=== PATIENT | female | born 1985 | race Caucasian/White ===

== ENCOUNTER 2016-11-06 20:26 | Inpatient (IN) | payer OTHER ==
[~2016-11-06] VITALS: Ht 165.1 cm; Wt 77.9 kg
[2016-11-06] MEDS ORDERED: FEXO1TAB58 PO (20:49)
[2016-11-06] MEDS ORDERED: GABA-112 PO (20:49)
[2016-11-06] MEDS ORDERED: DICY10CA55 PO (20:49)
[2016-11-06] MEDS ORDERED: SUMA100T16 PO (20:50)
[2016-11-06] MEDS ORDERED: LORA-741 PO (20:50)
[2016-11-06 21:09] LABS: BASO % 0.4 %; BASO ABS # 0.04 K/uL (0-0.2); COMPLETE YES; EOS % 3.9 %; HEMATOCRIT 40.4 % (37-47); IG% 0.2 %; LYMPH % 36.4 %; LYMPH ABS # 3.71 K/uL (1.2-3.4); MEAN CELL VOLUME 88.4 fL (80-100); MEAN CORPUSCULAR HEMOGLOBIN 31.9 pg (25-34); MEAN CORPUSCULAR HGB CONC 36.1 g/dl (32-36); MEAN PLATELET VOLUME 10.3 fL (7.4-10.4); MONO % 7.4 %; NEUT % 51.7 %; PLATELET COUNT 272 K/uL (130-400); RED BLOOD COUNT 4.57 M/uL (4.2-5.4); WHITE BLOOD COUNT 10.18 K/uL (4.8-10.8)
[2016-11-06 21:15] LABS: URINE APPEARANCE CLEAR (CLEAR); URINE BILIRUBIN NEG (NEG); URINE COLOR DK YELLOW; URINE EPITHELIAL CELL AUTO >30 /lpf (0-5); URINE NITRITE NEG (NEG); URINE SPECIFIC GRAVITY 1.039 (1.000-1.030); UROBILINOGEN NEG (NEG)
[2016-11-06 21:16] LABS: MANUAL MICROSCOPIC REQUIRED? NO; REVIEW REQ? YES
[2016-11-06 21:17] LABS: BUN/CREATININE RATIO 23.2 (10-20); CALCIUM 9.6 mg/dl (8.5-10.1); CREATININE 0.85 mg/dl (0.60-1.20); POTASSIUM 3.9 mmol/L (3.5-5.1)
[2016-11-06 21:20] LABS: ALB/GLOB RATIO 1.5 (0.9-2)
[2016-11-06] MEDS ORDERED: ONDANSETRON INJ 2 MG/ML 2 ML VIAL IV STA (21:24)
[2016-11-06] MEDS ORDERED: HYDROmorphone INJ 0.5 MG/0.5 ML SYR IV STA (21:24)
[2016-11-06 21:26] LABS: URINE MUCUS PRESENT (NONE PRSENT)
[2016-11-06 21:27] LABS: ZZUR CULT IF INDIC CLEAN CATCH YES
[2016-11-06] MEDS ORDERED: SODIUM CHLORIDE 0.9% 1000ML 1,000 ML IV STA (21:27)
--- NOTE | 2016-11-06 22:13 | DIAGNOSTIC IMAGING REPORT ---
ABDOMINAL ULTRASOUND, RIGHT UPPER QUADRANT HISTORY: Right upper quadrant abdominal pain. COMPARISON: None. FINDINGS: This study is compromised by suboptimal penetration. Liver morphology is normal. No biliary ductal dilatation is identified. The common bile duct measures 4 mm in caliber. The gallbladder is filled with gallstones. There may be mild gallbladder wall thickening. No pericholecystic fluid was present. A sonographic Damon sign was elicited. The wall thickness is difficult to assess on this exam as the gallbladder is filled with gallstones. The pancreas is obscured by overlying bowel gas. No right hydronephrosis is present. A 1.6 cm right renal lesion is suggestive of a cyst. IMPRESSION: 1. Cholelithiasis with possible mild gallbladder wall thickening and sonographic Damon sign. A hepatobiliary scan could be obtained to evaluate for acute cholecystitis. 2. No biliary ductal dilatation. 3. Largely obscured pancreas. Electronically signed by: Ata Weeks M.D. 11/06/2016 10:11 PM Dictated Date/Time: 11/06/2016 10:08 PM
[2016-11-06] MEDS ORDERED: LORAZEPAM INJ 0.5 MG in SYRINGE 0.25 ML IV PRN (23:45)
[2016-11-06] MEDS ORDERED: ONDANSETRON INJ 2 MG/ML 2 ML VIAL IV PRN (23:45)
[2016-11-06] MEDS ORDERED: PROMETHAZINE HCL INJ 25 MG in SODIUM CHLORIDE 0.9% 50ML 50 ML IV PRN (23:45)
[2016-11-06] MEDS ORDERED: HYDROmorphone INJ 1 MG/ML SYR IV PRN (23:45)
[2016-11-06] MEDS ORDERED: HYDROmorphone INJ 0.5 MG/0.5 ML SYR IV PRN (23:45)
--- NOTE | 2016-11-06 23:58 | History and Physical ---
History & Physical Date & Time of Service: Nov 06, 2016 at 23:53 Chief Complaint: Upper Abdomen Pain In Back And Right Sholder Primary Care Physician: Millie Longoria PA-C History of Present Illness Source: patient, spouse 31 yo female with RUQ pain, nausea 1-2 weeks now worsening u/s- gallstones, positive Damon's sign Past Medical/Surgical History Medical Problems: (1) IBS (irritable bowel syndrome) Status: Resolved Family History Gallbladder disease Social History Smoking Status: Current Every Day Smoker Smokeless Tobacco Use: No Marital Status: Allergies Coded Allergies: Cefuroxime (Unverified Allergy, Unknown, RASH, 11/06/16) Clarithromycin (Unverified Allergy, Unknown, PASS OUT, 11/06/16) Iodinated Diagnostic Agents (Unverified Allergy, Unknown, ANAPHYLAXIS, ) Penicillins (Unverified Allergy, Unknown, RASH, 11/06/16) Sulfa Antibiotics (Unverified Allergy, Unknown, RASH, 11/06/16) Home Medications Scheduled Dicyclomine Hcl (Bentyl), 10 MG PO QID Fexofenadine-Pseudoephedrine (Skye-D 24 Hour Allergy), 1 TAB PO DAILY Gabapentin (Neurontin), 100 MG PO QID Scheduled PRN Lorazepam (Ativan), 0.5 MG PO Q6H PRN for Anxiety Sumatriptan Succinate (Imitrex), 100 MG PO PRN PRN for Headache Review of Systems Constitutional: No chills, No fever Respiratory: No cough, No sputum Cardiovascular: No chest pain Abdomen: + nausea, + pain, No vomiting Genitourinary - Female: No dysuria Neurologic: No weakness Integumentary: No rash Physical Exam Vital Signs Date Time Temp Pulse Resp B/P Pulse Ox O2 Delivery O2 Flow Rate FiO2 11/06/16 22:16 70 18 120/68 95 Room Air 11/06/16 20:29 36.7 102 20 93/67 97 Room Air General Appearance: no apparent distress Eyes: sclerae normal Neck: supple Respiratory/Chest: no respiratory distress Cardiovascular: regular rate, rhythm Abdomen/GI: soft, + tenderness Extremities/Musculoskelatal: no pedal edema Neurologic/Psych: alert Skin: no rash Diagnostics Laboratory Results Results Past 24 Hours Test 11/06/16 20:45 Range/Units White Blood Count 10.18 4.8-10.8 K/uL Red Blood Count 4.57 4.2-5.4 M/uL Hemoglobin 14.6 12.0-16.0 g/dL Hematocrit 40.4 37-47 % Mean Corpuscular Volume 88.4 80-100 fL Mean Corpuscular Hemoglobin 31.9 25-34 pg Mean Corpuscular Hemoglobin Concent 36.1 32-36 g/dl Platelet Count 272 130-400 K/uL Mean Platelet Volume 10.3 7.4-10.4 fL Neutrophils (%) (Auto) 51.7 % Lymphocytes (%) (Auto) 36.4 % Monocytes (%) (Auto) 7.4 % Eosinophils (%) (Auto) 3.9 % Basophils (%) (Auto) 0.4 % Neutrophils # (Auto) 5.26 1.4-6.5 K/uL Lymphocytes # (Auto) 3.71 1.2-3.4 K/uL Monocytes # (Auto) 0.75 0.11-0.59 K/uL Eosinophils # (Auto) 0.40 0-0.5 K/uL Basophils # (Auto) 0.04 0-0.2 K/uL RDW Standard Deviation 43.5 36.4-46.3 fL RDW Coefficient of Variation 13.4 11.5-14.5 % Immature Granulocyte % (Auto) 0.2 % Immature Granulocyte # (Auto) 0.02 0.00-0.02 K/uL Urine Color DK YELLOW Urine Appearance CLEAR CLEAR Urine pH 5.0 4.5-7.5 Urine Specific [place] 1.039 1.000-1.030 Urine Protein NEG NEG Urine Glucose (UA) NEG NEG Urine Ketones TRACE NEG Urine Occult Blood NEG NEG Urine Nitrite NEG NEG Urine Bilirubin NEG NEG Urine Urobilinogen NEG NEG Urine Leukocyte Esterase TRACE NEG Urine WBC (Auto) 1-5 0-5 /hpf Urine RBC (Auto) 0-4 0-4 /hpf Urine Hyaline Casts (Auto) 5-10 0-5 /lpf Urine Epithelial Cells (Auto) >30 0-5 /lpf Urine Bacteria (Auto) 1+ NEG Urine Renal Epithelial Cells 0-5 /lpf Urine Mucus PRESENT NONE PRSENT Urine Test NEG NEG Sodium Level 140 136-145 mmol/L Potassium Level 3.9 3.5-5.1 mmol/L Chloride Level 106 98-107 mmol/L Carbon Dioxide Level 23 21-32 mmol/L Anion Gap 11.0 3-11 mmol/L Blood Urea Nitrogen 20 7-18 mg/dl Creatinine 0.85 0.60-1.20 mg/dl Est Creatinine Clear Calc Drug Dose 100.8 ml/min Estimated GFR () 107.3 Estimated GFR (Non- 92.6 BUN/Creatinine Ratio 23.2 10-20 Random Glucose 95 70-99 mg/dl Calcium Level 9.6 8.5-10.1 mg/dl Total Bilirubin 0.4 0.2-1 mg/dl Aspartate Amino Transf (AST/SGOT) 11 15-37 U/L Alanine Aminotransferase (ALT/SGPT) 19 12-78 U/L Alkaline Phosphatase 95 45-117 U/L Total Protein 7.7 6.4-8.2 gm/dl Albumin 4.6 3.4-5.0 gm/dl Globulin 3.1 2.5-4.0 gm/dl Albumin/Globulin Ratio 1.5 0.9-2 Lipase 143 73-393 U/L Microbiology Results 11/06/16 Urine Culture, Received Pending Impression Assessment and Plan admit with acute cholecystitis- for laparoscopic cholecystectomy tomorrow 11/07 IV fluids, atbx, antiemetics VTE Prophylaxis VTE Risk Assessment Done? Y/N: Yes Risk Level: Moderate
[2016-11-07] VITALS (12 sets, daily range): BP systolic 94–134; BP diastolic 60–88; PULSE 59–94; TEMP 36.2–37.1; O2SAT 91–99; Ht 165.1 cm; Wt 77.9 kg
[2016-11-07] MEDS: LACTATED RINGER'S 1000ML 1,000 ML IV SCH ×3 (01:10→22:15)
[2016-11-07] MEDS ORDERED: PROMETHAZINE HCL INJ 12.5 MG in SODIUM CHLORIDE 0.9% 50ML 50 ML IV PRN (01:15)
[2016-11-07] MEDS: METRONIDAZOLE / NSS 500 MG in PREMIXED NSS 100 ML IV SCH ×3 (01:25→15:58)
[2016-11-07] MEDS: CIPROFLOXACIN / D5W 400 MG in PREMIXED IN D5W 200 ML IV SCH ×2 (01:25→13:36)
[2016-11-07] MEDS: KETOROLAC TROMETHAMINE 30 MG/ML VIAL IV. SCH ×5 (01:26→23:43)
[2016-11-07] MEDS ORDERED: LORAZEPAM 2 MG/ML 1 ML VIAL IV PRN (02:00)
[2016-11-07] MEDS ORDERED: LORAZEPAM INJ 0.5 MG in SYRINGE 0.25 ML IV PRN (03:00)
--- NOTE | 2016-11-07 03:34 | EMERGENCY ROOM VISIT NOTE ---
History Report prepared by Jean Pierre: Miryam Vogel Under the Supervision of: Dr. Ric Norman M.D. First contact with patient: 21:14 Chief Complaint: ABDOMINAL PAIN Stated Complaint: UPPER ABDOMEN PAIN IN BACK AND RIGHT SHOLDER Nursing Triage Summary: Patient reports RUQ pain x 2 weeks. States that is has worsened over the past 2 days. Described as sharp. States that pain readiated into right upper back. States that pain was worsened after eating. Denies any CP or SOB. Reports associated nausea. Denies any urinary s/s. History of Present Illness The patient is a 31 year old female who presents to the Emergency Room via with complaints of worsening upper abdominal pain with onset two weeks ago. She rates her pain as a 9/10 and describes that the pain is sharp. She did not take anything for the pain prior to arrival at the ED. The patient feels as if she has a heart burn sensation through her chest and she is nauseous. She has some right shoulder discomfort and central back pain. The patient relates that she is congested. The patient has a history of IBS and headaches. The patient takes Neurontin and Bentyl on a regular basis. She denies a personal history of gallbladder issues. The patient further denies LOC, headache, fevers, chills, diaphoresis, visual changes, neck pain, breathing difficulties, vomiting, melena, hematochezia, urinary symptoms, numbness, weakness, lymphadenopathy, rash, or other complaints. Source of History: patient Onset: two weeks ago Position: abdomen Symptom Intensity: 9/10 Quality: sharp Timing: worsening Associated Symptoms: + back pain, + nausea Note: She is congested and has some right shoulder discomfort. Review of Systems See HPI for pertinent positives and negatives. A total of ten systems were reviewed and were otherwise negative. Past Medical & Surgical Medical Problems: (1) Acute cholecystitis (2) IBS (irritable bowel syndrome) Family History Gallbladder disease Social History Smoking Status: Current Every Day Smoker Marital Status: Housing Status: lives with family Occupation Status: employed Current/Historical Medications Scheduled Dicyclomine Hcl (Bentyl), 10 MG PO QID Fexofenadine-Pseudoephedrine (Skye-D 24 Hour Allergy), 1 TAB PO DAILY Gabapentin (Neurontin), 100 MG PO QID Scheduled PRN Lorazepam (Ativan), 0.5 MG PO Q6H PRN for Anxiety Sumatriptan Succinate (Imitrex), 100 MG PO PRN PRN for Headache Allergies Coded Allergies: Cefuroxime (Unverified Allergy, Unknown, RASH, 11/06/16) Clarithromycin (Unverified Allergy, Unknown, PASS OUT, 11/06/16) Iodinated Diagnostic Agents (Unverified Allergy, Unknown, ANAPHYLAXIS, ) Penicillins (Unverified Allergy, Unknown, RASH, 11/06/16) Sulfa Antibiotics (Unverified Allergy, Unknown, RASH, 11/06/16) Physical Exam Vital Signs Date Time Temp Pulse Resp B/P Pulse Ox O2 Delivery O2 Flow Rate FiO2 11/06/16 22:16 70 18 120/68 95 Room Air 11/06/16 20:29 36.7 102 20 93/67 97 Room Air Physical Exam GENERAL: Awake, alert, uncomfortable-appearing, in no distress HENT: Normocephalic, atraumatic. Oropharynx unremarkable. EYES: Normal conjunctiva. Sclera non-icteric. NECK: Supple. No nuchal rigidity. FROM. No JVD. RESPIRATORY: Clear to auscultation. CARDIAC: Regular rate, normal rhythm. Extremities warm and well perfused. Pulses equal. ABDOMEN: Soft, non-distended. Right upper quadrant tenderness to palpation. No rebound. Some abdominal guarding. No masses. Positive Damon's sign. RECTAL: Deferred. MUSCULOSKELETAL: Chest examination reveals no tenderness. The back is symmetrical on inspection without obvious abnormality. There is no CVA tenderness to palpation. No joint edema. LOWER EXTREMITIES: Calves are equal size bilaterally and non-tender. No edema. No discoloration. NEURO: Normal sensorium. No sensory or motor deficits noted. SKIN: No rash or jaundice noted. Medical Decision & Procedures ER Provider Diagnostic Interpretation: Ultrasound results as stated below per my review and radiologist interpretation. ABDOMINAL ULTRASOUND, RIGHT UPPER QUADRANT HISTORY: Right upper quadrant abdominal pain. COMPARISON: None. FINDINGS: This study is compromised by suboptimal penetration. Liver morphology is normal. No biliary ductal dilatation is identified. The common bile duct measures 4 mm in caliber. The gallbladder is filled with gallstones. There may be mild gallbladder wall thickening. No pericholecystic fluid was present. A sonographic Damon sign was elicited. The wall thickness is difficult to assess on this exam as the gallbladder is filled with gallstones. The pancreas is obscured by overlying bowel gas. No right hydronephrosis is present. A 1.6 cm right renal lesion is suggestive of a cyst. IMPRESSION: 1. Cholelithiasis with possible mild gallbladder wall thickening and sonographic Damon sign. A hepatobiliary scan could be obtained to evaluate for acute cholecystitis. 2. No biliary ductal dilatation. 3. Largely obscured pancreas. Electronically signed by: Ata Weeks M.D. 11/06/2016 10:11 PM Dictated Date/Time: 11/06/2016 10:08 PM Laboratory Results 11/06/16 20:45 Red Blood Count 4.57, Mean Corpuscular Volume 88.4, Mean Corpuscular Hemoglobin 31.9, Mean Corpuscular Hemoglobin Concent 36.1, Mean Platelet Volume 10.3, Neutrophils (%) (Auto) 51.7, Lymphocytes (%) (Auto) 36.4, Monocytes (%) (Auto) 7.4, Eosinophils (%) (Auto) 3.9, Basophils (%) (Auto) 0.4, Neutrophils # (Auto) 5.26, Lymphocytes # (Auto) 3.71, Monocytes # (Auto) 0.75, Eosinophils # (Auto) 0.40, Basophils # (Auto) 0.04 11/06/16 20:45 Test 11/06/16 20:45 White Blood Count 10.18 K/uL (4.8-10.8) Red Blood Count 4.57 M/uL (4.2-5.4) Hemoglobin 14.6 g/dL (12.0-16.0) Hematocrit 40.4 % (37-47) Mean Corpuscular Volume 88.4 fL (80-100) Mean Corpuscular Hemoglobin 31.9 pg (25-34) Mean Corpuscular Hemoglobin Concent 36.1 g/dl (32-36) Platelet Count 272 K/uL (130-400) Mean Platelet Volume 10.3 fL (7.4-10.4) Neutrophils (%) (Auto) 51.7 % Lymphocytes (%) (Auto) 36.4 % Monocytes (%) (Auto) 7.4 % Eosinophils (%) (Auto) 3.9 % Basophils (%) (Auto) 0.4 % Neutrophils # (Auto) 5.26 K/uL (1.4-6.5) Lymphocytes # (Auto) 3.71 K/uL (1.2-3.4) Monocytes # (Auto) 0.75 K/uL (0.11-0.59) Eosinophils # (Auto) 0.40 K/uL (0-0.5) Basophils # (Auto) 0.04 K/uL (0-0.2) RDW Standard Deviation 43.5 fL (36.4-46.3) RDW Coefficient of Variation 13.4 % (11.5-14.5) Immature Granulocyte % (Auto) 0.2 % Immature Granulocyte # (Auto) 0.02 K/uL (0.00-0.02) Urine Color DK YELLOW Urine Appearance CLEAR (CLEAR) Urine pH 5.0 (4.5-7.5) Urine Specific [place] 1.039 (1.000-1.030) Urine Protein NEG (NEG) Urine Glucose (UA) NEG (NEG) Urine Ketones TRACE (NEG) Urine Occult Blood NEG (NEG) Urine Nitrite NEG (NEG) Urine Bilirubin NEG (NEG) Urine Urobilinogen NEG (NEG) Urine Leukocyte Esterase TRACE (NEG) Urine WBC (Auto) 1-5 /hpf (0-5) Urine RBC (Auto) 0-4 /hpf (0-4) Urine Hyaline Casts (Auto) 5-10 /lpf (0-5) Urine Epithelial Cells (Auto) >30 /lpf (0-5) Urine Bacteria (Auto) 1+ (NEG) Urine Renal Epithelial Cells /lpf (0-5) Urine Mucus PRESENT (NONE PRSENT) Urine Test NEG (NEG) Anion Gap 11.0 mmol/L (3-11) Est Creatinine Clear Calc Drug Dose 100.8 ml/min Estimated GFR () 107.3 Estimated GFR (Non- 92.6 BUN/Creatinine Ratio 23.2 (10-20) Calcium Level 9.6 mg/dl (8.5-10.1) Total Bilirubin 0.4 mg/dl (0.2-1) Aspartate Amino Transf (AST/SGOT) 11 U/L (15-37) Alanine Aminotransferase (ALT/SGPT) 19 U/L (12-78) Alkaline Phosphatase 95 U/L (45-117) Total Protein 7.7 gm/dl (6.4-8.2) Albumin 4.6 gm/dl (3.4-5.0) Globulin 3.1 gm/dl (2.5-4.0) Albumin/Globulin Ratio 1.5 (0.9-2) Lipase 143 U/L (73-393) Laboratory results reviewed by me Medications Administered Medications (Trade) Dose Ordered Sig/Catherine Route Start Time Stop Time Status Last Admin Dose Admin Hydromorphone HCl (Dilaudid Inj) 0.5 mg NOW STAT IV 11/06/16 21:24 11/06/16 21:25 DC 11/06/16 21:34 0.5 MG Ondansetron HCl 4 mg 4 mg NOW STAT IV 11/06/16 21:24 11/06/16 21:25 DC 11/06/16 21:34 4 MG Sodium Chloride 1,000 ml @ 999 mls/hr Q1H1M STAT IV 11/06/16 21:27 11/06/16 22:27 DC 11/06/16 21:34 999 MLS/HR Lactated Ringer's (Lr 1000ml) 1,000 ml @ 100 mls/hr Q10H IV 11/06/16 23:45 12/06/16 23:44 11/07/16 01:10 100 MLS/HR Hydromorphone HCl (Dilaudid Inj) 1 mg Q3H PRN IV 11/06/16 23:45 11/20/16 23:44 11/07/16 01:09 1 MG ED Course 2118: The patient was evaluated in room A12. A complete history and physical exam was performed. 4: Zofran 4 mg IV, Dilaudid 0.5 mg IV 2126: Sodium Chloride 1000 ml @ 999 mls/hr IV 2326: I reevaluated the patient and updated her on the results of her imaging. 2339: I discussed the case with Dr. Lynn (General Surgery); he will further evaluate the patient. Medical Decision Triage Nursing notes reviewed. The patient's presentation and history were concerning for right upper quadrant abdominal pain. Etiologies such as PUD, biliary pathology, appendicitis, diverticulitis, obstruction, inflammatory bowel disease, renal colic, pancreatitis, mesenteric ischemia, aortic pathology, infections, genitourinary, UTI, perforated viscus, as well as others were entertained. The patient was evaluated. She was given Dilaudid and Zofran for pain control. Her physical examination was concerning for possible gallbladder source. The patient had an unremarkable CT, chemistry, LFTs and urinalysis. Her was negative. The patient underwent ultrasound imaging in this was concerning for a biliary source. On reassessment patient still had some pain and nausea. Consultation was made with general surgery. The patient was evaluated in the Emergency Room and admitted. The chart was completed utilizing [employer] Speech voice recognition software. Grammatical errors, random word insertions, pronoun errors, and incomplete sentences are an occasional consequence of this system due to software limitations, ambient noise, and hardware issues. Any formal questions or concerns about the content, text, or information contained within the body of this dictation should be directly addressed to the physician for clarification. [place] Drug Monitoring Program Search Results: patient reviewed within database, no issues identified Consults Time Called: 2901 Consulting Physician: Dr. Lynn (General Surgery) Returned Call: [phone] I discussed the case with Dr. Lynn (General Surgery); he will further evaluate the patient. Impression Primary Impression: Acute cholecystitis Scribe Attestation The scribe's documentation has been prepared under my direction and personally reviewed by me in its entirety. I confirm that the note above accurately reflects all work, treatment, procedures, and medical decision making performed by me. Departure Information Dispostion Being Evaluated By Surgeon Patient Instructions [facility]
--- NOTE | 2016-11-07 05:25 | History & Physical Bridge Note ---
H&P Re-Evaluation Bridge Note: I have examined the patient, reviewed the History & Physical and in the interval since the performance of the History & Physical I have noted the following changes of clinical significance: No changes noted
--- NOTE | 2016-11-07 05:42 | INTERNAL MEDICINE CONSULTATION ---
DATE OF CONSULTATION: 11/07/2016 PRIMARY CARE DOCTOR: Emilio Valero. Patient seen at the request of Dr. Lynn for medical management. Patient currently admitted under Surgery service for acute cholecystitis. HISTORY OF PRESENT ILLNESS: Medical history significant for anxiety, migraine, ongoing tobacco abuse. Two weeks' history of constant achy right upper quadrant pain symptoms with nausea and dry heaving, worse with food intake, achy. No fever, no chills. Patient seen at the Emergency Room. Ultrasound showed sonographic Damon sign and cholecystitis. Patient received Cipro and Flagyl in the ER. Currently admitted under Surgery service. Surgery contemplated in the morning. MEDICAL HISTORY: As above. Chronic sinusitis symptoms for months, outpatient ENT consultation contemplated. SURGERIES: None. HOME MEDICATIONS: Include Bentyl, Skye, Neurontin for migraine prophylaxis, Imitrex, Ativan. ALLERGIES: CEFUROXIME, CLARITHROMYCIN, PENICILLIN, SULFA, DYE. FAMILY HISTORY: Gallbladder disease and hypertension.. OUTPATIENT SURGERIES: Gynecologic procedures. PERSONAL AND SOCIAL HISTORY: A pack daily. No chronic ETOH intake. Homemaker. REVIEW OF SYSTEMS: As per HPI, all other ROS negative. PHYSICAL EXAMINATION: VITAL SIGNS: Blood pressure was noted to be 120/60, pulse rate 70, RR 18, temperature 37, sats 98 on room air. GENERAL: Noted to be slightly uncomfortable. No respiratory distress SKIN : normal color. HEENT: [place] palpebral conjunctivae. Dry mucosa. NECK: No JVD. supple CHEST: Clear to auscultation. HEART: RRR ABDOMEN: Right upper quadrant tenderness. EXTREMITIES: No edema. no tenderness NEUROLOGIC: No gross focality. LABORATORIES: Hemoglobin was noted to be 14.6, hematocrit 40.4, white cell count is 10.8, platelets 272. Sodium 140, potassium 3.9, chloride 106, CO2 20, BUN 20, creatinine 0.8, glucose 95. LFTS, lipase N Gallbladder ultrasound as per HPI. ASSESSMENT: 1. Acute calculous cholecystitis, no sepsis. 2. History of migraine, on gabapentin prophylaxis. 3. Ongoing tobacco abuse. 4. Chronic sinusitis, as per records. RECOMMENDATIONS: Agree with Cipro, Flagyl Facilitate home gabapentin for migraine prophylaxis outpatient ENT consultation for chronic sinusitis. Nicotine patch. DVT prophylaxis, SCD as per Surgery orders on admission. Thank you very much for this consultation. Dr. Ramos will follow the patient's progress. NOHEMY
[2016-11-07 07:41] LABS: BUN/CREATININE RATIO 24.4 (10-20); CALCIUM 8.5 mg/dl (8.5-10.1); CREATININE 0.75 mg/dl (0.60-1.20); POTASSIUM 4.1 mmol/L (3.5-5.1)
[2016-11-07] MEDS: GABAPENTIN 100 MG CAP PO SCH ×4 (07:43→20:10)
[2016-11-07] MEDS ORDERED: FENTANYL CITRATE INJ 50 MCG/1 ML 2 ML VIAL ONE ×2 (08:14→11:13)
[2016-11-07] MEDS ORDERED: MIDAZOLAM HCL 1 MG/ML 2ML VIAL ONE (08:14)
[2016-11-07] MEDS ORDERED: LIDOCAINE HCL 2% 2 ML VIAL (20MG/ML) ONE (08:40)
[2016-11-07] MEDS ORDERED: PROPOFOL IV EMULSION 10 MG/ML 20 ML VIAL IV ONE ×2 (08:40→09:57)
[2016-11-07] MEDS ORDERED: ROCURONIUM BROMIDE 10 MG/ML 5 ML VIAL ONE (08:40)
[2016-11-07] MEDS ORDERED: EpHEDrine SULFATE INJ 50 MG/ML AMP IV PRN (08:45)
[2016-11-07] MEDS ORDERED: HYDROmorphone INJ 1 MG/ML SYR IV PRN (08:45)
[2016-11-07] MEDS ORDERED: LABETALOL HCL IV 5 MG/ML 20ML IV PRN (08:45)
[2016-11-07] MEDS ORDERED: ATROPINE SULFATE 0.1 MG/ML 5ML SYR IV PRN (08:45)
[2016-11-07] MEDS ORDERED: ONDANSETRON INJ 2 MG/ML 2 ML VIAL IV PRN (08:45)
[2016-11-07] MEDS ORDERED: MEPERIDINE HCL 25 MG/ML CARP IV PRN (08:45)
[2016-11-07] MEDS ORDERED: FENTANYL CITRATE INJ 50 MCG/1 ML 2 ML VIAL IV PRN (08:45)
[2016-11-07] MEDS: SODIUM CHLORIDE 0.65% NA SOLN 45 ML (OCEAN) SCH ×3 (09:00→20:10)
[2016-11-07] MEDS ORDERED: LARYING-O-JET KIT (LTA) EXT ONE ×2 (09:50)
[2016-11-07] MEDS ORDERED: GLYCOPYRROLATE INJ 0.2 MG/ML VIAL ONE ×2 (09:52→10:11)
[2016-11-07] MEDS ORDERED: NEOSTIGMINE METHYLSULFATE 5 MG/5 ML SYR ONE (09:52)
[2016-11-07] MEDS ORDERED: DEXAMETHASONE SOD INJ 4 MG/ML VIAL ONE (09:53)
[2016-11-07] MEDS ORDERED: ONDANSETRON INJ 2 MG/ML 2 ML VIAL ONE ×2 (09:53→10:10)
[2016-11-07] MEDS ORDERED: EpHEDrine SULFATE 50MG/5ML SYR ONE (09:54)
[2016-11-07] MEDS ORDERED: BUPIVACAINE 0.5 % 5 MG/1 ML MPF 30ML VIAL INJ ONE (10:18)
--- NOTE | 2016-11-07 10:27 | [facility] Operative Report ---
Operative Report Operative Date Nov 07, 2016. Pre-Operative Diagnosis Acute cholecystitis Post-Operative Diagnosis chronic cholecystitis Procedure(s) Performed lap noelle Surgeon Dr. Gabriel Lynn Irrigator Valve Pipe Surgeon(s) NONE Estimated Blood Loss 20 mL Findings chronic adhesions, LG stone and multiple small stones Specimens Permanent Specimens A: Gallbladder and contents Anesthesia gen Complication(s) None Disposition Recovery Room / PACU I attest to the content of the Intraoperative Record and any orders documented therein. Any exceptions are noted below.
[2016-11-07] MEDS ORDERED: HYDROCODONE/ACETAMOPHEN 5/325MG TAB PO PRN (10:30)
[2016-11-07] MEDS ORDERED: SUMATRIPTAN SUCC TAB 100 MG TAB PO PRN (10:30)
[2016-11-07] MEDS ORDERED: NURSING VERBAL MED ORDER ONE (11:00)
[2016-11-07] MEDS ORDERED: PROMETHAZINE HCL INJ 25 MG in SODIUM CHLORIDE 0.9% 50ML 50 ML IV ONE (11:00)
--- NOTE | 2016-11-07 13:31 | OPERATIVE REPORT ---
DATE OF OPERATION: 11/07/2016 NAME OF OPERATION: Laparoscopic cholecystectomy. PREOPERATIVE DIAGNOSIS: Cholecystitis. POSTOPERATIVE DIAGNOSIS: Chronic cholecystitis. STAFF SURGEON: Dr. Lynn. ANESTHESIA: General. DESCRIPTION OF PROCEDURE: The patient was brought in the operating room and placed on the operating table in supine position. Her abdomen was prepped and draped in usual fashion. Pneumatic stockings and orogastric tube were placed. A 0.5% plain Marcaine was used to anesthetize all incisions. Incision was made above the umbilicus, carrying dissection down to the fascia, placing a Veress needle producing pneumoperitoneum. The patient was placed in reverse Trendelenburg position, rotated to the left. An 11 mm port was placed at this level. Under visualization, three 5 mm ports were placed, 1 cephalad and 2 laterally. Gallbladder was grasped and retracted. The patient had multiple stones. She had adhesions. The gallbladder was aspirated of bile which was sludge-like. Dissection was carried out at the titus hepatis, identifying the cystic duct and cystic artery. These were clipped and transected and the gallbladder was then dissected away from the liver bed in the usual fashion, placed in an Endobag. After appropriate irrigation and hemostasis, the Endobag was removed through the umbilical site. I did have to enlarge the fascial defect secondary to large stones. The fascia was closed using running 0 PDS suture, subcutaneous tissue reapproximated using 2-0 plain catgut suture, and then the skin reapproximated at the umbilicus using 5-0 Prolene suture. The other sites closed using subcuticular 4-0 Monocryl and Dermabond. The patient was transferred to recovery room in stable condition. I attest to the content of the Intraoperative Record and any orders documented therein. Any exceptio ns are noted below.
[2016-11-07] MEDS: HYDROCODONE/ACETAMOPHEN 5/325MG TAB PO PRN (13:37)
--- NOTE | 2016-11-07 13:50 | Anesthesiology Progress Note ---
Anesthesia Post Op Note Date & Time Nov 07, 2016 at 13:50 Vital Signs Pain Intensity: 5.0 Vital Signs Past 12 Hours Date Time Temp Pulse Resp B/P Pulse Ox O2 Delivery O2 Flow Rate FiO2 11/07/16 12:45 82 16 106/70 98 Room Air 82 11/07/16 12:15 70 16 104/71 91 Room Air 11/07/16 11:45 36.2 79 16 118/77 99 Nasal Cannula 2.0 11/07/16 11:35 36.2 11/07/16 11:34 66 16 98 11/07/16 11:34 66 16 11/07/16 11:33 111/72 11/07/16 11:29 71 16 97 11/07/16 11:29 74 16 98 11/07/16 11:28 116/80 11/07/16 11:23 112/74 11/07/16 11:21 85 16 98 11/07/16 11:21 69 16 93 11/07/16 11:18 115/81 11/07/16 11:16 71 16 11/07/16 11:16 73 16 98 11/07/16 11:15 81 17 11/07/16 11:15 82 17 99 11/07/16 11:13 116/80 11/07/16 11:10 78 17 100 11/07/16 11:10 79 13 99 11/07/16 11:08 116/74 11/07/16 11:04 81 16 99 11/07/16 11:04 86 16 97 11/07/16 11:03 111/79 11/07/16 10:59 81 16 98 11/07/16 10:59 81 16 11/07/16 10:58 102/71 11/07/16 10:53 126/77 11/07/16 10:51 78 16 100 11/07/16 10:51 72 16 100 11/07/16 10:48 118/75 11/07/16 10:46 86 16 100 11/07/16 10:46 86 16 11/07/16 10:45 66 16 100 11/07/16 10:43 112/73 11/07/16 10:38 117/79 11/07/16 10:36 85 9 99 11/07/16 10:36 87 13 100 11/07/16 10:36 36.2 92 12 125/78 99 Mask 10 11/07/16 08:59 Room Air 11/07/16 08:07 36.6 59 16 95/60 98 Room Air Notes Mental Status: alert / awake / arousable, participated in evaluation Pt Amnestic to Procedure: Yes Nausea / Vomiting: adequately controlled Pain: adequately controlled Airway Patency, RR, SpO2: stable & adequate BP & HR: stable & adequate Hydration State: stable & adequate Anesthetic Complications: no major complications apparent
--- NOTE | 2016-11-07 19:05 | Progress Note ---
Medicine Progress Note Date & Time of Visit: Nov 07, 2016 at 18:53. Subjective Pt was seen and examined Lying in bed comfortable with no distress Pt said that she feels ok she tolerates diet very well she denies any chest pain, palpitation and sob Objective Last 8 Hrs Date Time Temp Pulse Resp B/P Pulse Ox O2 Delivery O2 Flow Rate FiO2 11/07/16 15:09 36.6 80 18 99/65 92 Room Air 11/07/16 14:41 76 16 104/69 92 Room Air 11/07/16 13:45 36.8 78 16 104/70 94 Room Air 11/07/16 12:45 82 16 106/70 98 Room Air 82 11/07/16 12:15 70 16 104/71 91 Room Air 11/07/16 11:45 36.2 79 16 118/77 99 Nasal Cannula 2.0 11/07/16 11:35 36.2 11/07/16 11:34 66 16 98 11/07/16 11:34 66 16 11/07/16 11:33 111/72 11/07/16 11:29 71 16 97 11/07/16 11:29 74 16 98 11/07/16 11:28 116/80 11/07/16 11:23 112/74 11/07/16 11:21 85 16 98 11/07/16 11:21 69 16 93 11/07/16 11:18 115/81 11/07/16 11:16 71 16 11/07/16 11:16 73 16 98 11/07/16 11:15 81 17 11/07/16 11:15 82 17 99 11/07/16 11:13 116/80 11/07/16 11:10 78 17 100 11/07/16 11:10 79 13 99 11/07/16 11:08 116/74 11/07/16 11:04 81 16 99 11/07/16 11:04 86 16 97 11/07/16 11:03 111/79 11/07/16 10:59 81 16 98 11/07/16 10:59 81 16 11/07/16 10:58 102/71 Physical Exam: General- no acute distress Head- atraumatic Eyes- PERRL, EOMI ENT- oropharynx clear Neck- supple, no JVD Lungs- clear to auscultation and percussion Heart- regular rhythm, no murmur Abdomen- Lap chol area tender, normal BS Extremities- no pretibial edema, no calf tenderness Neuro- alert, oriented x 3; PERRL, EOMI Skin- warm & dry Laboratory Results: Last 24 Hours Test 11/06/16 20:45 11/07/16 05:55 White Blood Count 10.18 K/uL Red Blood Count 4.57 M/uL Hemoglobin 14.6 g/dL Hematocrit 40.4 % Mean Corpuscular Volume 88.4 fL Mean Corpuscular Hemoglobin 31.9 pg Mean Corpuscular Hemoglobin Concent 36.1 g/dl Platelet Count 272 K/uL Mean Platelet Volume 10.3 fL Neutrophils (%) (Auto) 51.7 % Lymphocytes (%) (Auto) 36.4 % Monocytes (%) (Auto) 7.4 % Eosinophils (%) (Auto) 3.9 % Basophils (%) (Auto) 0.4 % Neutrophils # (Auto) 5.26 K/uL Lymphocytes # (Auto) 3.71 K/uL Monocytes # (Auto) 0.75 K/uL Eosinophils # (Auto) 0.40 K/uL Basophils # (Auto) 0.04 K/uL RDW Standard Deviation 43.5 fL RDW Coefficient of Variation 13.4 % Immature Granulocyte % (Auto) 0.2 % Immature Granulocyte # (Auto) 0.02 K/uL Urine Color DK YELLOW Urine Appearance CLEAR Urine pH 5.0 Urine Specific [place] 1.039 Urine Protein NEG Urine Glucose (UA) NEG Urine Ketones TRACE Urine Occult Blood NEG Urine Nitrite NEG Urine Bilirubin NEG Urine Urobilinogen NEG Urine Leukocyte Esterase TRACE Urine WBC (Auto) 1-5 /hpf Urine RBC (Auto) 0-4 /hpf Urine Hyaline Casts (Auto) 5-10 /lpf Urine Epithelial Cells (Auto) >30 /lpf Urine Bacteria (Auto) 1+ Urine Renal Epithelial Cells /lpf Urine Mucus PRESENT Urine Test NEG Sodium Level 140 mmol/L 142 mmol/L Potassium Level 3.9 mmol/L 4.1 mmol/L Chloride Level 106 mmol/L 107 mmol/L Carbon Dioxide Level 23 mmol/L 24 mmol/L Anion Gap 11.0 mmol/L 11.0 mmol/L Blood Urea Nitrogen 20 mg/dl 18 mg/dl Creatinine 0.85 mg/dl 0.75 mg/dl Est Creatinine Clear Calc Drug Dose 100.8 ml/min 114.2 ml/min Estimated GFR () 107.3 124.8 Estimated GFR (Non- 92.6 107.7 BUN/Creatinine Ratio 23.2 24.4 Random Glucose 95 mg/dl 93 mg/dl Calcium Level 9.6 mg/dl 8.5 mg/dl Total Bilirubin 0.4 mg/dl Aspartate Amino Transf (AST/SGOT) 11 U/L Alanine Aminotransferase (ALT/SGPT) 19 U/L Alkaline Phosphatase 95 U/L Total Protein 7.7 gm/dl Albumin 4.6 gm/dl Globulin 3.1 gm/dl Albumin/Globulin Ratio 1.5 Lipase 143 U/L Date/Time Source Procedure Growth Status 11/06/16 20:45 Urine , Clean Catch Urine Culture - Preliminary PIN-POINT GROWTH PRESENT, REINCUBATING. Resulted Assessment & Plan Acute calculous cholecystitis S/p day#0 Laparoscopic cholecystectomy Doing well with no complication Continue cipro and flagyl incentive spirometry tolerated diet well check cbc and bmp in am continue pain management History of migraine Continue gabapentin prophylaxis. Sumatriptan prn Stable Tobacco abuse Nicotine patch DVT prophylaxis SCDs Code Status Full code Current Inpatient Medications: Current Inpatient Medications Medications (Trade) Dose Ordered Sig/Catherine Route Start Time Stop Time Status Last Admin Dose Admin Lactated Ringer's 1,000 ml @ 100 mls/hr Q10H IV 11/06/16 23:45 12/06/16 23:44 11/07/16 09:03 100 MLS/HR Ciprofloxacin/ Dextrose 400 mg/ Prmx 200 ml @ 100 mls/hr Q12H IV 11/07/16 01:00 11/17/16 00:59 11/07/16 13:36 100 MLS/HR Metronidazole/Prmx (Flagyl / Nss/ Premixed Nss) 100 ml @ 100 mls/hr Q8H IV 11/07/16 01:00 11/17/16 00:59 11/07/16 15:58 100 MLS/HR Hydromorphone HCl (Dilaudid Inj) 0.5 mg Q3H PRN IV 11/06/16 23:45 11/20/16 23:44 Hydromorphone HCl (Dilaudid Inj) 1 mg Q3H PRN IV 11/06/16 23:45 11/20/16 23:44 11/07/16 01:09 1 MG Ketorolac Tromethamine (Toradol Inj) 30 mg Q6H IV. 11/07/16 01:00 11/12/16 00:59 11/07/16 17:54 30 MG Ondansetron HCl 4 mg 4 mg Q6H PRN IV 11/06/16 23:45 12/06/16 23:44 Promethazine HCl 25 mg/Sodium Chloride 51 ml @ 204 mls/hr Q6H PRN IV 11/06/16 23:45 12/06/16 23:44 Promethazine HCl/ Sodium Chloride (Phenergan Inj/ Nss 50ml) 50.5 ml @ 204 mls/hr Q6H PRN IV 11/07/16 01:15 12/07/16 01:14 11/07/16 02:21 204 MLS/HR Gabapentin (Neurontin Cap) 100 mg QID PO 11/07/16 09:00 12/07/16 08:59 11/07/16 15:56 100 MG Sodium Chloride 2 sprays 2 sprays TID NA 11/07/16 09:00 12/07/16 08:59 Lorazepam/Syringe (Ativan Inj/ Syringe) 0.5 ml @ 0.5 mls/min Q4H PRN IV 11/07/16 03:00 12/07/16 02:59 Sumatriptan Succinate (Imitrex Tab) 100 mg DAILY PRN PO 11/07/16 10:30 12/07/16 10:29 Acetaminophen/ Hydrocodone Bitart ([place] 5/325 Tab) 1 tab Q4 PRN PO 11/07/16 10:30 11/21/16 10:29 11/07/16 13:37 1 TAB Acetaminophen/ Hydrocodone Bitart ([place] 5/325 Tab) 2 tab Q4 PRN PO 11/07/16 10:30 11/21/16 10:29
[2016-11-08] MEDS: METRONIDAZOLE / NSS 500 MG in PREMIXED NSS 100 ML IV SCH ×3 (01:35→18:48)
[2016-11-08] MEDS: CIPROFLOXACIN / D5W 400 MG in PREMIXED IN D5W 200 ML IV SCH ×2 (01:38→13:23)
[2016-11-08 03:13] VITALS: BP 98/59; PULSE 76; TEMP 36.9; O2SAT 94
[2016-11-08] MEDS: KETOROLAC TROMETHAMINE 30 MG/ML VIAL IV. SCH (05:49)
[2016-11-08] MEDS: LACTATED RINGER'S 1000ML 1,000 ML IV SCH (05:49)
[2016-11-08 06:06] LABS: HEMATOCRIT 32.5 % (37-47); MEAN CELL VOLUME 88.6 fL (80-100); MEAN CORPUSCULAR HEMOGLOBIN 31.6 pg (25-34); MEAN CORPUSCULAR HGB CONC 35.7 g/dl (32-36); MEAN PLATELET VOLUME 10.1 fL (7.4-10.4); PLATELET COUNT 219 K/uL (130-400); RED BLOOD COUNT 3.67 M/uL (4.2-5.4); WHITE BLOOD COUNT 13.63 K/uL (4.8-10.8)
--- NOTE | 2016-11-08 06:23 | Surgery Progress Note ---
Surgery Progress Note Date of Service Nov 08, 2016. Subjective + pain controlled, No nausea, No vomiting has only had IV pain med- feeling ok Objective Vital Signs: Date Time Temp Pulse Resp B/P Pulse Ox O2 Delivery O2 Flow Rate FiO2 11/08/16 03:13 36.9 76 16 98/59 94 Room Air 11/07/16 23:42 Room Air 11/07/16 22:59 36.7 78 16 105/68 95 Room Air 11/07/16 19:25 37.1 94 18 94/61 92 Room Air 11/07/16 16:30 92 Room Air 11/07/16 15:09 36.6 80 18 99/65 92 Room Air 11/07/16 14:41 76 16 104/69 92 Room Air 11/07/16 13:45 36.8 78 16 104/70 94 Room Air 11/07/16 12:45 82 16 106/70 98 Room Air 82 11/07/16 12:15 70 16 104/71 91 Room Air 11/07/16 11:45 36.2 79 16 118/77 99 Nasal Cannula 2.0 11/07/16 11:35 36.2 11/07/16 11:34 66 16 98 11/07/16 11:34 66 16 11/07/16 11:33 111/72 11/07/16 11:29 71 16 97 11/07/16 11:29 74 16 98 11/07/16 11:28 116/80 11/07/16 11:23 112/74 11/07/16 11:21 85 16 98 11/07/16 11:21 69 16 93 11/07/16 11:18 115/81 11/07/16 11:16 71 16 11/07/16 11:16 73 16 98 11/07/16 11:15 81 17 11/07/16 11:15 82 17 99 11/07/16 11:13 116/80 11/07/16 11:10 78 17 100 11/07/16 11:10 79 13 99 11/07/16 11:08 116/74 11/07/16 11:04 81 16 99 11/07/16 11:04 86 16 97 11/07/16 11:03 111/79 11/07/16 10:59 81 16 98 11/07/16 10:59 81 16 11/07/16 10:58 102/71 11/07/16 10:53 126/77 11/07/16 10:51 78 16 100 11/07/16 10:51 72 16 100 11/07/16 10:48 118/75 11/07/16 10:46 86 16 100 11/07/16 10:46 86 16 11/07/16 10:45 66 16 100 11/07/16 10:43 112/73 11/07/16 10:38 117/79 11/07/16 10:36 85 9 99 11/07/16 10:36 87 13 100 11/07/16 10:36 36.2 92 12 125/78 99 Mask 10 11/07/16 08:59 Room Air 11/07/16 08:07 36.6 59 16 95/60 98 Room Air General Appearance: no apparent distress Respiratory/Chest: no respiratory distress Abdomen: soft Incision(s): dry, intact Laboratory Results: Results Past 24 Hours Test 11/08/16 05:40 Range/Units White Blood Count 13.63 4.8-10.8 K/uL Red Blood Count 3.67 4.2-5.4 M/uL Hemoglobin 11.6 12.0-16.0 g/dL Hematocrit 32.5 37-47 % Mean Corpuscular Volume 88.6 80-100 fL Mean Corpuscular Hemoglobin 31.6 25-34 pg Mean Corpuscular Hemoglobin Concent 35.7 32-36 g/dl RDW Standard Deviation 43.5 36.4-46.3 fL RDW Coefficient of Variation 13.4 11.5-14.5 % Platelet Count 219 130-400 K/uL Mean Platelet Volume 10.1 7.4-10.4 fL Assessment & Plan 11/08/16- s/p lap noelle- doing well- need to stop IV pain med and try po cont IV fluid for now- advance diet
[2016-11-08 06:38] LABS: BUN/CREATININE RATIO 18.2 (10-20); CALCIUM 8.3 mg/dl (8.5-10.1); CREATININE 0.71 mg/dl (0.60-1.20)
[2016-11-08 06:48] LABS: ALB/GLOB RATIO 1.1 (0.9-2)
[2016-11-08 08:03] VITALS: BP 109/67; PULSE 70; TEMP 36.5; O2SAT 94
[2016-11-08] MEDS: GABAPENTIN 100 MG CAP PO SCH ×4 (08:30→20:17)
[2016-11-08] MEDS: HYDROCODONE/ACETAMOPHEN 5/325MG TAB PO PRN (08:38)
[2016-11-08] MEDS: SODIUM CHLORIDE 0.65% NA SOLN 45 ML (OCEAN) SCH ×3 (08:39→20:17)
[2016-11-08] MEDS ORDERED: LORAZEPAM 0.5 MG TAB PO PRN (11:00)
[2016-11-08] MEDS ORDERED: NURSING VERBAL MED ORDER ONE (13:15)
[2016-11-08] MEDS: DICYCLOMINE HCL 10 MG CAP PO SCH ×3 (13:28→20:16)
[2016-11-08] MEDS ORDERED: ALBUT/IPRATROP 3MG/0.5MG NEB 3 ML VIAL INH PRN (13:30)
[2016-11-08 13:42] VITALS: PULSE 72; O2SAT 96
[2016-11-08 14:58] VITALS: BP 118/91; PULSE 77; TEMP 36.4; O2SAT 94
--- NOTE | 2016-11-08 19:59 | Progress Note ---
Medicine Progress Note Date & Time of Visit: Nov 08, 2016 at 19:53. Subjective Pt was seen and examined sitting in chair comfortable with no distress Pt said that she started to have some abdominal pain she said that she tolerated diet well she said that early today she was having some breathing problem denies any chest pain, palpitation, dizziness. Objective Last 8 Hrs Date Time Temp Pulse Resp B/P Pulse Ox O2 Delivery O2 Flow Rate FiO2 11/08/16 14:58 36.4 77 18 118/91 94 Room Air 11/08/16 13:42 72 18 96 Room Air Physical Exam: General- no acute distress Head- atraumatic Eyes- PERRL, EOMI ENT- oropharynx clear Neck- supple, no JVD Lungs- clear to auscultation and percussion Heart- regular rhythm, no murmur Abdomen- tenderness around the incision area, normal BS Extremities- no pretibial edema, no calf tenderness Neuro- alert, oriented x 3; PERRL, EOMI Skin- warm & dry Laboratory Results: Last 24 Hours Test 11/08/16 05:40 White Blood Count 13.63 K/uL Red Blood Count 3.67 M/uL Hemoglobin 11.6 g/dL Hematocrit 32.5 % Mean Corpuscular Volume 88.6 fL Mean Corpuscular Hemoglobin 31.6 pg Mean Corpuscular Hemoglobin Concent 35.7 g/dl RDW Standard Deviation 43.5 fL RDW Coefficient of Variation 13.4 % Platelet Count 219 K/uL Mean Platelet Volume 10.1 fL Sodium Level 142 mmol/L Potassium Level 4.0 mmol/L Chloride Level 108 mmol/L Carbon Dioxide Level 25 mmol/L Anion Gap 9.0 mmol/L Blood Urea Nitrogen 13 mg/dl Creatinine 0.71 mg/dl Est Creatinine Clear Calc Drug Dose 120.6 ml/min Estimated GFR () 133.4 Estimated GFR (Non- 115.1 BUN/Creatinine Ratio 18.2 Random Glucose 121 mg/dl Calcium Level 8.3 mg/dl Total Bilirubin 0.4 mg/dl Aspartate Amino Transf (AST/SGOT) 20 U/L Alanine Aminotransferase (ALT/SGPT) 32 U/L Alkaline Phosphatase 64 U/L Total Protein 5.7 gm/dl Albumin 3.0 gm/dl Globulin 2.7 gm/dl Albumin/Globulin Ratio 1.1 Assessment & Plan Acute calculous cholecystitis S/p day#1 Laparoscopic cholecystectomy Doing well with no complication Continue cipro and flagyl incentive spirometry tolerated diet well, advanced continue pain management Stable History of migraine Continue gabapentin prophylaxis. Sumatriptan prn Stable Tobacco abuse Nicotine patch DVT prophylaxis SCDs Code Status Full code Disposition Possible discharge tomorrow Current Inpatient Medications: Current Inpatient Medications Medications (Trade) Dose Ordered Sig/Catherine Route Start Time Stop Time Status Last Admin Dose Admin Lactated Ringer's 1,000 ml @ 50 mls/hr Q20H IV 11/06/16 23:45 12/06/16 23:44 11/08/16 05:49 100 MLS/HR Ciprofloxacin/ Dextrose 400 mg/ Prmx 200 ml @ 100 mls/hr Q12H IV 11/07/16 01:00 11/17/16 00:59 11/08/16 13:23 100 MLS/HR Metronidazole/Prmx (Flagyl / Nss/ Premixed Nss) 100 ml @ 100 mls/hr Q8H IV 11/07/16 01:00 11/17/16 00:59 11/08/16 18:48 100 MLS/HR Hydromorphone HCl (Dilaudid Inj) 0.5 mg Q3H PRN IV 11/06/16 23:45 11/20/16 23:44 Hydromorphone HCl (Dilaudid Inj) 1 mg Q3H PRN IV 11/06/16 23:45 11/20/16 23:44 11/07/16 01:09 1 MG Ondansetron HCl 4 mg 4 mg Q6H PRN IV 11/06/16 23:45 12/06/16 23:44 Promethazine HCl 25 mg/Sodium Chloride 51 ml @ 204 mls/hr Q6H PRN IV 11/06/16 23:45 12/06/16 23:44 Promethazine HCl/ Sodium Chloride (Phenergan Inj/ Nss 50ml) 50.5 ml @ 204 mls/hr Q6H PRN IV 11/07/16 01:15 12/07/16 01:14 11/07/16 02:21 204 MLS/HR Gabapentin (Neurontin Cap) 100 mg QID PO 11/07/16 09:00 12/07/16 08:59 11/08/16 18:48 100 MG Sodium Chloride 2 sprays 2 sprays TID NA 11/07/16 09:00 12/07/16 08:59 11/08/16 13:29 2 SPRAYS Lorazepam/Syringe (Ativan Inj/ Syringe) 0.5 ml @ 0.5 mls/min Q4H PRN IV 11/07/16 03:00 12/07/16 02:59 Sumatriptan Succinate (Imitrex Tab) 100 mg DAILY PRN PO 11/07/16 10:30 12/07/16 10:29 Acetaminophen/ Hydrocodone Bitart ([place] 5/325 Tab) 1 tab Q4 PRN PO 11/07/16 10:30 11/21/16 10:29 11/08/16 08:38 1 TAB Acetaminophen/ Hydrocodone Bitart ([place] 5/325 Tab) 2 tab Q4 PRN PO 11/07/16 10:30 11/21/16 10:29 Dicyclomine HCl ([place]yl Cap) 10 mg QID PO 11/08/16 13:00 12/08/16 12:59 11/08/16 18:48 10 MG Lorazepam (Ativan Tab) 0.5 mg Q6H PRN PO 11/08/16 11:00 12/08/16 10:59 Albuterol/ Ipratropium (Duoneb) 3 ml Q6H PRN INH 11/08/16 13:30 12/08/16 13:29 11/08/16 13:42 3 ML
[2016-11-08 23:05] VITALS: BP 99/64; PULSE 77; TEMP 36.6; O2SAT 97
[2016-11-09] MEDS: METRONIDAZOLE / NSS 500 MG in PREMIXED NSS 100 ML IV SCH (01:34)
[2016-11-09] MEDS: CIPROFLOXACIN / D5W 400 MG in PREMIXED IN D5W 200 ML IV SCH (01:34)
[2016-11-09] MEDS: LACTATED RINGER'S 1000ML 1,000 ML IV SCH (01:35)
[2016-11-09 06:55] VITALS: BP 109/75; PULSE 64; TEMP 36.6; O2SAT 95
[2016-11-09] MEDS ORDERED: HYDR-5688 PO (07:43)
--- NOTE | 2016-11-09 07:45 | Discharge Instructions ---
Discharge Instructions Admission Reason for Admission: Acute Cholecystitis Discharge Discharge Diagnosis / Problem: acute cholecystitis Discharge Goals Goal(s): Decrease discomfort, Improve function, Improve disease control Activity Recommendations Activity Limitations: as noted below Lifting Limitations: no more than 25 pounds Exercise/Sports Limitations: until after follow-up appointment May Resume Sexual Activity: when tolerated Shower/Bathe: no limitations (no bath for 1 week) Driving or Machine Use: resume 3 days after discharge SPECIAL CARE INSTRUCTIONS: * Cover incisions and change daily for comfort/drainage. * May use ibuprofen for pain as tolerated. * Expect some swelling and bruising. Call your doctor if: * Temperature above 101 degrees * Pain not relieved by pain medicine ordered * There is increased drainage or redness from any incision * You have any unanswered questions or concerns [phone]. FOLLOW UP VISIT: If not already scheduled, please call the office for a follow-up visit. for next week- sutures OFFICE PHONE NUMBER: Dr. Lynn Office . Current Hospital Diet Patient's current hospital diet: Regular Diet Discharge Diet Recommended Diet: Regular Diet Procedures Procedures Performed: Laparoscopic Cholecystectomy Pending Studies Studies pending at discharge: no Medical Emergencies . Who to Call and When: Medical Emergencies: If at any time you feel your situation is an emergency, please call 911 immediately. . Non-Emergent Contact Non-Emergency issues call your: Surgeon . "Provider Documentation" section prepared by Gabriel Lynn. VTE Core Measure Inpt VTE Proph given/why not?: SCD's
--- NOTE | 2016-11-09 08:01 | DISCHARGE SUMMARY ---
PRINCIPAL DIAGNOSIS: Acute cholecystitis. HISTORY OF PRESENT ILLNESS: The patient is a 31-year-old female presenting to the Emergency Room with persistent acute abdominal pain consistent with biliary colic, admitted to the hospital and taken to the operating room the following day. HOSPITAL COURSE: The patient was admitted to the hospital on 11/06/2016. She was taken to the operating room on 11/07/2016 where she underwent laparoscopic cholecystectomy, which she tolerated very well. She has done well postoperatively and felt stable for discharge home today to be followed in the surgical clinic next week.
[2016-11-09] MEDS: DICYCLOMINE HCL 10 MG CAP PO SCH (08:15)
[2016-11-09] MEDS: GABAPENTIN 100 MG CAP PO SCH (08:16)
[2016-11-09] MEDS: SODIUM CHLORIDE 0.65% NA SOLN 45 ML (OCEAN) SCH (08:16)
[2016-11-09 08:21] VITALS: BP 109/75; PULSE 64; TEMP 36.6; O2SAT 95
[2016-11-09 08:26] VITALS: BP 109/75; PULSE 64; TEMP 36.6; O2SAT 95
== END 2016-11-09 09:30 | disposition home or self-care (01) | DRG 419 ==
LOC: ENRESERVTM → ENRESERVDT → C.EDB 20:28 → MERGE 23:52 → C.MSW 23:52
PROVIDERS: ADMIT Surgery; ATTEND Surgery
PROC: 0FT44ZZ Resection of Gallbladder, Percutaneous Endoscopic Approach (ICD-10-PCS; principal; 2016-11-07 09:30)
DX: K81.2 Acute cholecystitis with chronic cholecystitis (principal); F17.210 Nicotine dependence, cigarettes, uncomplicated; K66.0 Peritoneal adhesions (postprocedural) (postinfection); K81.1 Chronic cholecystitis; J32.9 Chronic sinusitis, unspecified; K21.9 Gastro-esophageal reflux disease without esophagitis; M54.5 Low back pain; G43.909 Migraine, unspecified, not intractable, without status migrainosus; J06.9 Acute upper respiratory infection, unspecified; F41.9 Anxiety disorder, unspecified; K58.9 Irritable bowel syndrome, unspecified; Z79.899 Other long term (current) drug therapy